=== PATIENT | male | born 1945 | race Caucasian/White ===

== ENCOUNTER → 2017-01-07 08:45 | Outpatient (CLI) | payer MEDICARE, BC, OTHER | END | disposition home or self-care (01) | LOC: D.US 01-06 09:30 → D.LAB 01-06 10:00 → D.US 08:45 | DX: K76.0 Fatty (change of) liver, not elsewhere classified (principal) ==

== ENCOUNTER → 2017-03-10 08:50 | Outpatient (CLI) | payer MEDICARE, BC, OTHER ==
[2017-03-10 10:14] LABS: APPEARANCE HAZY (CLEAR); BILIRUBIN NEGATIVE (NEGATIVE); COLOR YELLOW (YELLOW); GLUCOSE NEGATIVE (NEGATIVE); KETONE NEGATIVE (NEGATIVE); LEUKOCYTE ESTERASE TRACE (NEGATIVE); NITRITE NEGATIVE (NEGATIVE); PROTEIN TRACE mg/dL (NEGATIVE); UROBILINOGEN NORMAL (NORMAL)
[2017-03-10 10:15] LABS: BACTERIA FEW /hpf (NONE SEEN); EPITHELIAL CELLS 0-5 /hpf (0-5); MUCUS >1+ /lpf (NONE SEEN); RED CELLS - URINE RARE /hpf (0-5); WHITE CELLS - URINE 0-5 /hpf (0-5)
[2017-03-10 10:38] LABS: ALBUMIN 3.5 g/dL (3.4-5.0); BILIRUBIN - DIRECT 0.05 mg/dL (0.00-0.30); BILIRUBIN - INDIRECT 0.18 mg/dL (0.00-1.00); BILIRUBIN - TOTAL 0.23 mg/dL (0.2-1.3); PROTEIN - SERUM 7.9 g/dL (6.4-8.2)
== END | disposition home or self-care (01) ==
LOC: D.US 08:50
PROVIDERS: Internal Medicine Gastroenterology
DX: K76.0 Fatty (change of) liver, not elsewhere classified (principal)

== ENCOUNTER → 2018-04-07 08:42 | Outpatient (CLI) | payer MEDICARE, BC, OTHER ==
[2018-04-07 09:51] LABS: ALBUMIN 3.9 g/dL (3.4-5.0); BILIRUBIN - DIRECT 0.11 mg/dL (0.00-0.30); BILIRUBIN - INDIRECT 0.39 mg/dL (0.00-1.00); BILIRUBIN - TOTAL 0.5 mg/dL (0.2-1.3); PROTEIN - SERUM 7.6 g/dL (6.4-8.2)
== END | disposition home or self-care (01) ==
LOC: D.US 04-05 08:00
PROVIDERS: Internal Medicine Gastroenterology
DX: K76.0 Fatty (change of) liver, not elsewhere classified (principal)

== ENCOUNTER → 2018-04-13 07:28 | Outpatient (CLI) | payer MEDICARE, BC, OTHER ==
[2018-04-13 08:15] LABS: CREATININE - SERUM 1.2 mg/dL (0.6-1.3)
== END | disposition home or self-care (01) ==
LOC: D.LAB 07:28 → D.MRI 08:00
PROVIDERS: Internal Medicine Gastroenterology
DX: R93.8 Abnormal findings on diagnostic imaging of other specified body structures (principal); K76.9 Liver disease, unspecified; K86.89 Other specified diseases of pancreas

== ENCOUNTER 2018-06-13 08:00 | Outpatient (CLI) | payer MEDICARE, BC, OTHER ==
[2018-06-13] MEDS ORDERED: TRULICITY1.5 MG/0.5 SC (09:49)
[2018-06-13] MEDS ORDERED: ZOLOFT100 MG PO (09:50)
[2018-06-13] MEDS ORDERED: GLUCOTROL 5 MG T5 MG PO (09:51)
[2018-06-13] MEDS ORDERED: OMEPRAZOLE20 M1 PO (09:51)
[2018-06-13] MEDS ORDERED: HYDROCHLOROTHIA25 MG PO (09:51)
[2018-06-13] MEDS ORDERED: TYLENOL650 MG/20. (09:52)
[2018-06-13] MEDS ORDERED: CARAFATE1 G PO (09:52)
[2018-06-13] MEDS ORDERED: LOVAZA1 G PO (09:53)
[2018-06-13] MEDS ORDERED: CATAPRES0.3 MG PO (09:53)
[2018-06-13] MEDS ORDERED: CENTRUM SILVER1 TA1 PO (09:54)
[2018-06-13] MEDS ORDERED: VITAMIN B-150 MG PO (09:54)
[2018-06-13] MEDS ORDERED: BAYER CHEWABLE81 MG PO (09:54)
[2018-06-13] MEDS ORDERED: AVAPRO300 MG PO (09:55)
[2018-06-13] MEDS ORDERED: VITAMIN C WIT1000 MG (09:55)
[2018-06-13] MEDS ORDERED: NORVASC10 MG PO (09:56)
[2018-06-13] MEDS ORDERED: TESTOSTERON200 MG/ML IM (09:57)
[2018-06-13] MEDS ORDERED: ZOCOR20 MG PO (09:57)
[2018-06-13 10:52] LABS: HEMATOCRIT 55.3 % (42.0-54.0); HEMOGLOBIN 18.6 g/dL (13.5-17.5); MCH 25.1 pg (26.0-34.0); MCHC 33.6 g/dL (31.0-37.0); MCV 74.7 fL (80.0-100.0); PLATELET COUNT 348 10x3/uL (130-400); RDW 18.7 % (11.5-14.5)
[2018-06-13 11:17] LABS: CALC OSMOLALITY 291 mosm/kg (275-300); CALCIUM 9.6 mg/dL (8.5-10.1); CARBON DIOXIDE 30.4 mmol/L (21.0-32.0); CHLORIDE - SERUM 103 mmol/L (98-107); GLUCOSE 260 mg/dL (74-106); POTASSIUM - SERUM 4.6 mmol/L (3.5-5.1); SODIUM 140 mmol/L (136-145); UREA NITROGEN 25 mg/dL (7-18); eGFR NON AFRICAN AMERICAN 78 mL/min (90-120)
== END 2018-06-13 08:01 | disposition home or self-care (01) ==
LOC: D.OPS 08:00 → EDSTATUS 06-15 09:30 → D.PAN 06-15 09:30 → D.OPS 06-15 09:30
PROVIDERS: Anesthesiology
DX: M19.071 Primary osteoarthritis, right ankle and foot (principal); Z01.811 Encounter for preprocedural respiratory examination; Z01.812 Encounter for preprocedural laboratory examination; Z01.810 Encounter for preprocedural cardiovascular examination; Z53.9 Procedure and treatment not carried out, unspecified reason

== ENCOUNTER → 2018-10-14 08:26 | Outpatient (CLI) | payer MEDICARE, BC, OTHER ==
[~2018-10-14 08:26] MED LIST: AVAPRO300 MG PO; BAYER CHEWABLE81 MG PO; CARAFATE1 G PO; CATAPRES0.3 MG PO; CENTRUM SILVER1 TA1 PO; GLUCOTROL 5 MG T5 MG PO; HYDROCHLOROTHIA25 MG PO; LOVAZA1 G PO; NORVASC10 MG PO; OMEPRAZOLE20 M1 PO; TESTOSTERON200 MG/ML IM; TRULICITY1.5 MG/0.5 SC; TYLENOL650 MG/20.; VITAMIN B-150 MG PO; VITAMIN C WIT1000 MG; ZOCOR20 MG PO; ZOLOFT100 MG PO
== END | disposition home or self-care (01) ==
LOC: D.US 08:26
DX: K76.0 Fatty (change of) liver, not elsewhere classified (principal)

== ENCOUNTER → 2018-10-27 12:59 | Outpatient (CLI) | payer MEDICARE, BC, OTHER | END | disposition home or self-care (01) | LOC: D.RT 12:59 | DX: Z87.891 Personal history of nicotine dependence (principal) ==

== ENCOUNTER → 2018-10-28 08:48 | Outpatient (CLI) | payer MEDICARE, BC, OTHER ==
[2018-10-28 10:42] LABS: BILIRUBIN - DIRECT 0.14 mg/dL (0.00-0.30); BILIRUBIN - INDIRECT 0.29 mg/dL (0.00-1.00); BILIRUBIN - TOTAL 0.43 mg/dL (0.2-1.3); PROTEIN - SERUM 7.5 g/dL (6.4-8.2)
== END | disposition home or self-care (01) ==
LOC: D.US 08:48
PROVIDERS: Internal Medicine Gastroenterology
DX: K76.0 Fatty (change of) liver, not elsewhere classified (principal)

== ENCOUNTER → 2019-04-27 09:03 | Outpatient (CLI) | payer MEDICARE, BC, OTHER | END | disposition home or self-care (01) | LOC: D.US 09:03 | DX: K76.0 Fatty (change of) liver, not elsewhere classified (principal) ==

== ENCOUNTER 2019-09-08 10:10 | Outpatient (CLI) | payer MEDICARE, BC, OTHER ==
[~2019-09-08] VITALS: Ht 170.2 cm; Wt 93.2 kg
--- NOTE | ~2019-09-08 | HEMODYNAMI ---
PATIENT:WIL VASQUEZ MEDICAL RECORD: [id number] : 43 LOCATION:[facility] ADMISSION DATE: 09/08/19 Generatedon:09/08/201914:55 Patient name: WIL VASQUEZ Patient #: [id number] SSN: : 1945 Date of study: 09/08/2019 Page: Of Hemodynamic Procedure Report Patient Data Patient Demographics Procedure consent was obtained First Name: WIL Gender: Male Last Name: CHRISTINA : 1945 Middle Initial: MYA Age: 73 year(s) Patient #: [id number] Race: Unknown Additional ID: [id number] Contact details [address]: [address] [place] [address] State: [place] City: [place] Zip code: [address] Past Medical History Allergies Allergen Reaction Date Comments Reported Other allergy 09/08/2019 carlos pcnroberth Admission Admission Data Admission Date: 09/08/2019 Admission Time: 10:10 Procedure Procedure Types Cath Procedure Peripheral Cath Diagnostic Procedure Abd/Extremity Extremities Bilat Lower Extremity Procedure Description Procedure Date Procedure Date: 09/08/2019 Procedure Start Time: 14:16 Procedure Staff Name Function Henrique Antonio MD Performing Physician Sergey Conway RT Monitor REHAN SNYDER RT Scrub Serenity Vega RN Nurse Selin Truong RN Nurse Griffin Acosta CRNA Additional personnel Procedure Data Cath Procedure Fluoroscopy Diagnostic fluoroscopy Total fluoroscopy Time: 3.4 time: 3.4 min min Diagnostic fluoroscopy Total fluoroscopy dose: 608 dose: 608 mGy mGy Contrast Material Contrast Material Type Amount (ml) Isovue 300 50 Procedure Medications Medication Administration Route Dosage Lidocaine 1% added to field 20 Heparin Flush Bag added to field 2 bags (1000units/500ml NS) Hemodynamics Rest Pre Cath Intra NCS Post Cath Medications Time Medication Route Dose Verified Delivered Reason Notes Effe ctiveness by by 13:12:33 Lidocaine 1% added 20ml Henrique Duenas for local to vial Paco Antonio MD anesthetic field MD 13:12:46 Heparin Flush added 2 Henrique Duenas used for Bag to bags Paco Antonio MD procedure (1000units/500ml field MD NS) Procedure Log Time Note 13:12:33 Lidocaine 1% 20ml vial added to field was administered by Henrique Antonio MD; for local anesthetic; Verbal order read back and verified. 13:12:46 Heparin Flush Bag (1000units/500ml NS) 2 bags added to field was administered by Henrique Antonio MD; used for procedure; Verbal order read back and verified. 13:14:47 Use device set IR Diagnostic 13:14:50 ACIST Syringe (12624) opened to sterile field. 13:14:51 ACIST Hand Control (22450) opened to sterile field. 13:14:51 ACIST Manifold (40096) opened to sterile field. 13:14:52 Bag Decanter (2002S) opened to sterile field. 13:14:52 Sterile Angiographic Pack opened to sterile field. 13:14:53 Tegaderm 4 x 4 (1626W) opened to sterile field. 13:16:12 Sergey Conway RT (R) (CV) sent for patient. Start room use. 13:16:14 Time tracking: Regular hours (M-F 7:00 - 5:00) 13:16:18 Patient received from Outpatients to IR Alert and oriented. Tansferred to table in Supine position. 13:16:22 Signed procedure consent form obtained from patient. 13:17:03 Correct patient and procedure confirmed by team. 13:17:05 ECG and BP/O2 sat monitors applied to patient. 13:17:07 Warm blankets applied, and kenn hugger turned on for patient comfort. 13:17:55 H&P Date Dictated: 09/08/2019 H&P Addendum completed by physician on da y of procedure. (MUST COMPLETE FOR ALL OUTPATIENTS). 13:17:56 Pre-procedure instructions explained to patient. 13:17:57 Pre-op teaching completed and patient verbalized understanding. 13:18:07 Patient NPO since Midnight. 13:18:34 Patient allergic to Other allergypepcid, pcn, bydureon 13:26:27 - 13::28 ----see anesthesia note for Pre-sedation anethsthesia assessment.---- 13::53 - 13::05 Right groin area was prepped with chlora-prep and draped in sterile fashion 13::11 Alarms reviewed by Reyna Sung 13::11 Sharps counted by scrub and verified by Kevin 13:27:29 2) 60-89 Mildly reduced kidney function, and other findings (as for stage 1) point to kidney disease. 13:27:37 Fire Safety Assessment: A--An alcohol-based skin anteseptic being used preoperatively., C--Open oxygen or nitrous oxide is being used. 13:27:47 - 13:55:26 Griffin Acosta CRNA present and monitoring patient for TIVA. 14:: Physician arrived 14:: --------ALL STOP TIME OUT------ : Final Timeout: patient, procedure, and site verified with staff and physician. All members of the team are in agreement. 14:: Right groin site verified by team. 14::21 Sedation plan: General Anesthesia Medication:General Anesthesia 14::31 2) 60-89 Mildly reduced kidney function, and other findings (as for stage 1) point to kidney disease. 14:: Maximum allowable contrast dose (3.7 X eGFR X 0.75)191 ml. 14:10:37 Procedure started. 14:10:37 Full Disclosure recording started 14:16:28 Local anesthetic to right femoral artery with Lidocaine 1% by Henrique Antonio MD.INITIAL ACCESS ONLY 14:16:29 CHOICE PT Extra Support J 300cm guide wire ([id number]) opened to steril e field. 14:16:29 SHEATH 5FR Shipman (OUK742) opened to sterile field. 14:16:30 ANGLIN 260 wire (L11233) opened to sterile field. 14:16:30 DOC .035 wire (P01974) opened to sterile field. 14:16:30 MICROPUNCTURE 4FR Cook (Y68777) opened to sterile field. 14:16:31 TUBING Contrast Injection High Pressure (URG298Z) opened to sterile field. 14:16:31 Angiodynamics Omniflush 5Fr 65cm (17528209) opened to sterile field. 14:16:32 GLIDE CATHETER 5FR ANGLED 65cm (CG507) opened to sterile field. 14:16:32 SHEATH 6FR Destination (RSR01) opened to sterile field. 14:16:33 AMPLATZ Super Stiff 75cm wire ([id number]) opened to sterile field. 14:21:50 GLIDE WIRE ANGLE 180cm (BP6302) opened to sterile field. 14:22:01 TORQUE DEVICE PLASTIC .038 ( TD01) opened to sterile field. 14:32:48 EXOSEAL 5Fr (EX500) opened to sterile field. 14:41:06 Procedure ended.(Physican Out) 14:41:24 Fluoroscopy time 03.40 minutes. 14:41:29 Fluoroscopy dose: 608 mGy 14:41:29 Flurop Dose total: 608 14:42:10 Contrast amount:Isovue 300 50ml. 14:42:15 Maximum allowable dose exceeded? No. 14:42:43 Post right femoral artery:stable 14:42:45 Post Procedure Pulses reassessed and unchanged 14:44:19 Post procedure instruction explained to patient.Patient verbalizes understanding. 14:44:19 Procedure and supply charges have been captured, reviewed, submitted an d are correct. 14:55:00 Report given to Outpatients. 14:55:03 Patient transfered to Outpatients with Bed. Device Usage Item Name Manufacture Quantity Catalog Number Hospital Part Current [facility] Lot# / Charge Number Stock Stock Serial# Code ACIST Syringe Acist Medical 1 75906 820836 420021 888675 20 (56767) Systems Inc ACIST Hand Acist Medical 1 35546 485996 011280 860934 5 Control Systems Inc (28468) ACIST Acist Medical 1 92141 936736 208770 628965 5 Manifold Systems Inc (74940) Bag Decanter Microtek 1 2001S 591170 57622 429442 5 (2001S) Medical Inc. Sterile Cardinal 1 [id number] 157009 572617 5 Angiographic Health Pack Tegaderm 4 x 3M 1 1626W 619250 246256 887939 5 4 (1626W) CHOICE PT [facility] 1 [id number] 314259 049061 716667 5 Floppy J Scientific 300cm guide wire ([id number]) CHOICE PT [facility] 1 [id number] 898961 20190530 811637 5 Extra Support Scientific J 300cm guide wire ([id number]) SHEATH 5FR Terumo 1 JLU107 484097 630755 068860 5 Shipman (YBU257) ANGLIN 260 [facility] 1 R11496 752058 20794 216400 5 wire (Z46443) DOC .035 wire [facility] 1 Q01497 265956 290691 5 (M19561) MICROPUNCTURE [facility] 1 Q18275 715576 878076 838435 5 4FR Cook (Z53785) TUBING [facility] 1 LTV109M 611550 958259 255399 5 [id number] Contrast Injection High Pressure (EHD166D) Angiodynamics Angiodynamics 1 [id number] 456311 125611 960296 5 Omniflush 5Fr 65cm (70783129) GLIDE Terumo 1 CG507 966984 782984 5 CATHETER 5FR ANGLED 65cm (CG507) SHEATH 6FR Terumo 1 RSR01 085377 17946 968632 5 Destination (RSR01) AMPLATZ Super [facility] 1 [id number] 315138 352894 707875 5 [id number] Stiff 75cm Scientific wire ([id number]) GLIDE WIRE Terumo 1 UE3058 179568 332142 873707 5 ANGLE 180cm (PG0996) TORQUE DEVICE [facility] 1 TD01 502651 931994 207790 5 PLASTIC .038 Scientific ( TD01) EXOSEAL 5Fr Cardinal 1 EX500 348620 904339 258102 10 [id number] (EX500) Health Signature Audit [place] Stage Time Signature Unsigned Intra-Procedure 09/08/2019 Serge[facility] 2:55:23 [facility] [address] [place] [id number]
[2019-09-08 10:40] LABS: CALCIUM 8.9 mg/dL (8.5-10.1); CARBON DIOXIDE 29.6 mmol/L (21.0-32.0); CREATININE - SERUM 1.1 mg/dL (0.6-1.3); POTASSIUM - SERUM 4.6 mmol/L (3.5-5.1)
[2019-09-08 11:22] LABS: HEMOGLOBIN 11.7 g/dL (13.5-17.5); MCH 28.5 pg (26.0-34.0); MCHC 33.4 g/dL (31.0-37.0); MCV 85.2 fL (80.0-100.0); MEAN PLATELET VOLUME 11.6 fL (7.4-10.4); RBC 4.11 10x6/uL (4.20-6.10); RDW 17.3 % (11.5-14.5); WBC 17.5 10x3/uL (4.8-10.8)
[2019-09-08 11:30] LABS: PLATELET COUNT 184 10x3/uL (130-400)
[2019-09-08 11:32] LABS: APTT 28.8 SECONDS (22.8-39.4); INR 1.2 (0.85-1.17); PROTIME 14.6 SECONDS (11.6-15.0)
[2019-09-08 11:33] VITALS: BP 147/73; Ht 170.2 cm; Wt 93.2 kg
[2019-09-08 12:07] LABS: ANISOCYTOSIS 1+; EOSINOPHILS 3 % (0-7); LYMPHOCYTES 14 % (15-50); MONOCYTES 4 % (2-11); NEUTROPHILS 73 % (40-80); PLATELET ESTIMATE NORMAL
[2019-09-08 12:08] LABS: POIKILOCYTOSIS 1+
--- NOTE | 2019-09-08 17:57 | NUR ---
RIGHT GROIN DRESSING C/D/I, AREA SOFT, NONTENDER, NONEDEMATOUS, PATIENT LYING IN BED, RIGHT PEDAL PULSES POSITIVE TO DOPPLER. PATIENT AMBULATES TO BATHROOM AND VOIDS LARGE AMOUNT IN TOILET WITHOUT DIFFICULTY. RIGHT HAND PIV DC'D WITH TIP INTACT. PATIENT DRESSING IN PERSONAL CLOTHING
--- NOTE | 2019-09-08 18:05 | NUR ---
DISCHARGED HOME VIA WHEELCHAIR TO PRIVATE VEHICLE WITH SPOUSE
== END 2019-09-08 18:05 | disposition home or self-care (01) ==
LOC: D.SP 10:10 → D.RAD 13:00 → D.SP 13:00
PROVIDERS: ATTEND General Practice
DX: I70.212 Atherosclerosis of native arteries of extremities with intermittent claudication, left leg (principal); I70.239 Atherosclerosis of native arteries of right leg with ulceration of unspecified site

== ENCOUNTER → 2019-11-07 08:15 | Outpatient (CLI) | payer MEDICARE, BC, OTHER ==
[2019-09-08 11:33] VITALS: BMI 32.2
--- NOTE | 2019-11-09 10:40 | EC ---
PATIENT:WIL VASQUEZ DATE OF SERVICE: 11/07/19 SEX: M MEDICAL RECORD: [id number] DATE OF : 43 LOCATION:D. AGE OF PATIENT: 73 ADMISSION DATE: 11/07/19 REFERRING PHYSICIAN: INTERPRETING PHYSICIAN: GALINA RODRIGUES MD ECHOCARDIOGRAM REPORT ECHO CHARGES 4 ECHO COMPLETE Date: 11/07/19 CLINICAL DIAGNOSIS: BILATERAL CAROTID ARTERY STENOSIS/ASSESS EF/VAVLES ECHOCARDIOGRAPHIC MEASUREMENTS (adult normal given) AC root (d.<3.7cm) 3.6 cm LV Septum d (<1.2 cm> 1.3 cm Valve Excursion 1.6 cm LV Septum (systole) 1.8 cm Left Atria (s.<4.0cm> 4.0 cm LVPW d(<1.2cm) 1.7 cm RV (d.<2.3cm) 5.0 cm LVPW (sytole) 2.0 cm LV diastole(<5.6CM) 5.9 cm MV E-F(>70mm/sec) cm LV systole 2.0 cm LVOT Diameter 1.5 cm MV exc.(>10mm) 1.5 cm Est.ejection fraction (50-75%) % DOPPLER: LVIT cm/sec A 109 cm/sec E 90.0 cm/sec LA cm/sec RVSP 31 mmHg LVOT 91 cm/sec AOP1/2T m/s Asc. Ao 228 cm/sec RVOT 78 cm/sec RA cm/sec PA 109 cm/sec AV Gradient Peak 20.72mmHg AV Mean 120.3mmHg AV Area 1.4 cm MV Gradient Peak 5.05 mmHg MV Mean 1.73 mmHg MV Area cm COMMENTS: Pricer: 2 [facility] School Administrator: 1 Dr. Rodrigues TAPE# PACS Pericardial Effusion N DATE OF SERVICE: ECHOCARDIOGRAM FINDINGS: 1. Left ventricular chamber size is mildly dilated. Left ventricular systolic function is preserved at 55% to 60%. 2. Left atrium is upper limits of normal at 4.0 cm. Right atrium and right ventricle chamber sizes are within normal limits. 3. Valvular structures: Aortic valve demonstrates mild calcific aortic ECHOCARDIOGRAM REPORT [id number] WIL VASQUEZ stenosis, valve area calculates to 1.4 cm-squared and has a gradient of 20 mm across the valve. The remaining valvular structures have normal structure and motion. 4. Doppler interrogation elsewise reveals mild mitral regurgitation, mild tricuspid regurgitation, no other valvular insufficiency or stenosis. Pulmonary systolic pressure is estimated at 31 mmHg. 5. No evidence of pericardial effusion or left ventricular thrombus. TRANSINT:[id number] Voice Confirmation ID: [id number] DOCUMENT ID: [id number] GALINA RODRIGUES MD at 1040 CC: [id number] DICTATION DATE: 11/07/19 1150 SALESPERSON JEWELRY: 11/07/19 1252 DEP CLI 11/07/19 [facility] [address] [place] [address]
== END | disposition home or self-care (01) ==
LOC: D.US 08:15 → D.ECHO 11-09 09:30
PROVIDERS: ATTEND Internal Medicine Cardiovascular Disease
DX: I65.23 Occlusion and stenosis of bilateral carotid arteries (principal)

== ENCOUNTER → 2019-11-28 09:58 | Outpatient (CLI) | payer MEDICARE, BC, OTHER ==
[2019-09-08 11:33] VITALS: BMI 32.2
[~2019-11-28 09:58] MED LIST changes: +ACIDOPHILUS-PE1 EACH PO; +GLIPIZIDE10 MG PO; -GLUCOTROL 5 MG T5 MG PO; +JAKAFI5 MG PO; +PLAVIX75 MG PO; +PROTONIX20 MG PO; +STOOL SOFTENER100 M1 PO; +TYLENOL ARTHRI650 MG PO; +VITAMIN C500 M1 PO; +ZYRTEC10 MG PO
[2019-11-28 12:26] LABS: HEMATOCRIT 35.2 % (42.0-54.0); HEMOGLOBIN 11.8 g/dL (13.5-17.5); MCH 28.4 pg (26.0-34.0); MCHC 33.5 g/dL (31.0-37.0); MCV 84.6 fL (80.0-100.0); MEAN PLATELET VOLUME 10.5 fL (7.4-10.4); RBC 4.16 10x6/uL (4.20-6.10); WBC 18.6 10x3/uL (4.8-10.8)
[2019-11-28 12:40] LABS: INR 1.19 (0.85-1.17); PROTIME 14.5 SECONDS (11.6-15.0)
[2019-11-28 12:56] LABS: ALBUMIN 4.1 g/dL (3.4-5.0); ALKALINE PHOSPHATASE 101 U/L (46-116); ALT (SGPT) 70 U/L (10-68); BILIRUBIN - TOTAL 0.35 mg/dL (0.2-1.3); CALC OSMOLALITY 286 mosm/kg (275-300); CALCIUM 8.8 mg/dL (8.5-10.1); CARBON DIOXIDE 28.2 mmol/L (21.0-32.0); CHLORIDE - SERUM 106 mmol/L (98-107); GLUCOSE 156 mg/dL (74-106); POTASSIUM - SERUM 4.2 mmol/L (3.5-5.1); SODIUM 142 mmol/L (136-145); UREA NITROGEN 14 mg/dL (7-18); eGFR NON AFRICAN AMERICAN 78 mL/min (90-120)
[2019-11-28 13:10] LABS: APPEARANCE CLEAR (CLEAR); BILIRUBIN NEGATIVE (NEGATIVE); COLOR DK YELLOW (YELLOW); GLUCOSE NEGATIVE (NEGATIVE); KETONE NEGATIVE (NEGATIVE); NITRITE NEGATIVE (NEGATIVE); PROTEIN 1+ mg/dL (NEGATIVE); UROBILINOGEN NORMAL (NORMAL)
[2019-11-28 13:12] LABS: BACTERIA FEW /hpf (NEGATIVE); EPITHELIAL CELLS 0-5 /hpf (0-5); GRANULAR CAST RARE /lpf (NONE SEEN); HYALINE CAST OCC /lpf (NONE SEEN); MUCUS <1+ /lpf (NONE SEEN); RED CELLS - URINE NONE SEEN /hpf (0-5); WHITE CELLS - URINE OCC /hpf (NEGATIVE)
== END | disposition home or self-care (01) ==
LOC: D.PAN 09:58
PROVIDERS: Thoracic Surgery (Cardiothoracic Vascular Surgery); ATTEND Internal Medicine Cardiovascular Disease
DX: I70.212 Atherosclerosis of native arteries of extremities with intermittent claudication, left leg (principal); Z01.810 Encounter for preprocedural cardiovascular examination; Z01.811 Encounter for preprocedural respiratory examination; Z01.812 Encounter for preprocedural laboratory examination

== ENCOUNTER 2019-11-28 10:10 | Inpatient (IN) | payer MEDICARE, BC, OTHER ==
[~2019-11-28] VITALS: Ht 170.2 cm; Wt 95.7 kg
[~2019-11-28 10:10] MED LIST changes: -ACIDOPHILUS-PE1 EACH PO; -JAKAFI5 MG PO; -PLAVIX75 MG PO; -PROTONIX20 MG PO; -STOOL SOFTENER100 M1 PO; -TYLENOL ARTHRI650 MG PO; -VITAMIN C500 M1 PO; -ZYRTEC10 MG PO
[2019-11-28] MEDS ORDERED: JAKAFI5 MG PO (12:34)
[2019-11-28] MEDS ORDERED: PROTONIX20 MG PO (12:35)
[2019-11-28] MEDS ORDERED: TYLENOL ARTHRI650 MG PO (12:41)
[2019-11-28] MEDS ORDERED: ACIDOPHILUS-PE1 EACH PO (12:43)
[2019-11-28] MEDS ORDERED: VITAMIN C500 M1 PO (12:46)
[2019-11-28] MEDS ORDERED: PLAVIX75 MG PO (12:47)
[2019-11-28] MEDS ORDERED: NORVASC10 MG PO (12:48)
[2019-11-28] MEDS ORDERED: ZYRTEC10 MG PO (12:49)
[2019-11-28] MEDS ORDERED: STOOL SOFTENER100 M1 PO (12:51)
[2019-12-01] VITALS (54 sets, daily range): BP systolic 105–165; BP diastolic 49–76; BMI 32.0; BMI 34.4
--- NOTE | 2019-12-01 10:43 | NUR ---
REC'D TO ROOM CV 06 VIA BED. CONNECTED TO BEDSIDE MONITOR AND VS OBTAINED. SEE FLOWSHEET FOR ASSESSMENT.
[2019-12-01 12:23] LABS: HEMATOCRIT 29.1 % (42.0-54.0); HEMOGLOBIN 9.8 g/dL (13.5-17.5)
--- NOTE | 2019-12-01 19:00 | NUR ---
PT ASSESSMENT COMPELTED AT THIS TIME, NO CHANGES NOTED FROM NURSE REPORT, VSS, A-LINE REMOVED FROM RIGHT WRIST AND MANUAL PRESSURE WAS HELD FOR 5 MIN, BLEEDING CONTROLED, CVP MONITORING WAS ALSO D/C DUE TO DUAL PRESSURE MONITORING LINES INPLACE, WILL MONITOR FOR CHANGES
--- NOTE | 2019-12-01 23:00 | NUR ---
PT REASSESSMENT COMPLETED AT THIS TIME, NO CHANGES NOTED FROM PREVIOUS, VSS, WILL MONITOR FOR CHANGES
[2019-12-02] VITALS (24 sets, daily range): BP systolic 111–167; BP diastolic 45–80
--- NOTE | 2019-12-02 01:00 | NUR ---
PT RESTING WITH EYES CLOSED RESP EVEN NONLABORED, VSS, NO DSITRESS NOTED, WILL MONITOR FOR CHANGES
--- NOTE | 2019-12-02 03:00 | NUR ---
PT REASSESSMENT COMPLETED AT THIS TIME, NO CHANGES NOTED, VSS, WILL MONITOR FOR CHANGES
--- NOTE | 2019-12-02 05:00 | NUR ---
PT I&O AND DAILY WEIGHT DOCUMENTATION COMPLETED, VSS, WILL MONITOR FOR CHANGES
[2019-12-02 06:07] LABS: HEMATOCRIT 27.6 % (42.0-54.0); MCH 27.9 pg (26.0-34.0); MCHC 32.6 g/dL (31.0-37.0); MCV 85.4 fL (80.0-100.0); MEAN PLATELET VOLUME 10.1 fL (7.4-10.4); RBC 3.23 10x6/uL (4.20-6.10); RDW 16.7 % (11.5-14.5); WBC 16.3 10x3/uL (4.8-10.8)
--- NOTE | 2019-12-02 06:10 | NUR ---
DANIELLE REMOVED AFTER BULB INTACT, 10 ML ASPIRATED, NICK WELL, PT ASSISTED UP TO CHAIR WITH STAND BY ASSIST
[2019-12-02 06:33] LABS: ALBUMIN 3.3 g/dL (3.4-5.0); ANION GAP 13.6 mmol/L (8-16); BILIRUBIN - TOTAL 0.45 mg/dL (0.2-1.3); CALCIUM 7.1 mg/dL (8.5-10.1); CARBON DIOXIDE 26.5 mmol/L (21.0-32.0); CREATININE - SERUM 1.2 mg/dL (0.6-1.3); POTASSIUM - SERUM 4.1 mmol/L (3.5-5.1); PROTEIN - SERUM 5.7 g/dL (6.4-8.2)
--- NOTE | 2019-12-02 12:24 | OP ---
PATIENT NAME: WIL VASQUEZ MEDICAL RECORD: [id number] :43 [facility] ADMISSION DATE:12/01/19 SURGEON: CALVIN JENKINS MD DATE OF OPERATION: 12/01/2019 SURGEON: Calvin Jenkins MD ANESTHESIA: General, Dr. Reed. OPERATION PERFORMED: Left common femoral, superficial femoral, and profunda femoral endarterectomy with patch angioplasty. PREOPERATIVE DIAGNOSES: Severe claudication of left lower extremity with severe stenosis of the common femoral artery. POSTOPERATIVE DIAGNOSES: Severe claudication of left lower extremity with severe stenosis of the common femoral artery. INDICATIONS FOR OPERATION: Severe claudication, Ciales stage III. ESTIMATED BLOOD LOSS: Less than 150 mL. The patch is CorMatrix, 1 inch x 10 cm. DESCRIPTION OF PROCEDURE: After informed consent, adequate preoperative medication evaluation, the patient was brought to the operating room, placed on the table in the supine position. After induction of general endotracheal anesthesia and application of appropriate monitoring devices, the left groin, abdomen, left leg were prepped and draped in sterile field using Betadine scrub, alcohol, and Betadine solution. A Betadine-impregnated drape was also used. A curvilinear incision was made over the left inguinal ligament and thigh, and dissection was carried down the fascia. Hemostasis was maintained with electrocautery. The common femoral artery was dissected distally onto the superficial femoral artery. A soft place was found on the superficial femoral artery to pass a vessel loop. Attention was then turned toward the profunda femoral artery. Utilizing sharp dissection, the profunda femoral artery and its branches to the first level were dissected free. Utilizing sharp dissection, the crossing vein was divided utilizing 4-0 silk suture ligatures. The individual limbs of the profunda were encircled with vessel loops. Attention was then turned cephalad and dissection was carried to the inguinal ligament. The artery was still extremely hard. Utilizing sharp dissection, the dissection was carried out to the external iliac artery and a soft place found that would be suitable for a clamp. The branches were encircled with vessel loops. The patient was given a calculated dose of heparin. Derra clamp was placed proximally on the external iliac artery. The vessel loops were then tightened on the profunda femoral artery and a soft clamp placed on the superficial femoral artery. The ACT was over 250 and was monitored throughout the case. The artery was opened. An arteriotomy was made onto the superficial femoral artery and proximally to the proximal end of the common femoral artery. The superficial femoral artery and common femoral artery underwent endarterectomy. Separately, the profunda femoral artery underwent endarterectomy into each individual branch with removal of a large amount of calcified plaque. The artery then underwent extensive debridement and irrigation. Utilizing a CorMatrix vascular patch, a running 6-0 Prolene suture, the arteriotomy was closed with patch angioplasty technique. All maneuvers to remove trapped air OPERATIVE REPORT [id number] WIL VASQUEZ were performed. The clamps were removed sequentially. The hemostasis was achieved. The patient was given a calculated dose of protamine to reverse the heparin. A 10 Saad-Taylor drain was left in the depths of wound and brought through the thigh. The wound was again irrigated. Instrument count and sponge counts were correct times 2. The wound was closed in layers utilizing 2-0 Vicryl on deep subcutaneous tissue, 3-0 Vicryl on the superficial subcutaneous tissue and skin approximated with 3-0 subcuticular Monocryl. Sterile dressings were applied. The patient tolerated the procedure well and was transferred to CV ICU in satisfactory condition. TRANSINT:[id number] Voice Confirmation ID: [id number] DOCUMENT ID: [id number] CALVIN JENKINS MD at 1224 CC: [id number] DICTATION DATE: 12/01/19 1138 INSPECTOR EYEGLASS FRAMES: 12/01/19 1347 ADM IN [id number] [place] [address]
--- NOTE | 2019-12-02 19:00 | NUR ---
PT ASSESSMENT COMPLETED AT THIS TIME, NO CHANGES NOTED FROM NURSE REPORT, VSS, PT AAOX4, NO DISTRESS NOTED, WILL MONITOR FOR CHANGES
--- NOTE | 2019-12-02 20:56 | NUR ---
PT RESTING IN BED WATCHING TV, PT DENIES COMPLAINTS OR DITRESS AT THIS TIME, VSS, WILL MONITOR FOR CHANGES
--- NOTE | 2019-12-02 23:00 | NUR ---
PT REASSESSMENT COMPLETED AT THIS TIME, VSS, NO CHANGES NOTED, WILL MONITOR FOR CHANGES
[2019-12-03] VITALS (22 sets, daily range): BP systolic 102–150; BP diastolic 49–75
--- NOTE | 2019-12-03 01:00 | NUR ---
PT RESTING WITH EYES CLOSED RESP EVEN NON LABORED, NO DISTRES NOTED, VSS, WILL MONITOR FOR CHANGES
--- NOTE | 2019-12-03 02:40 | NUR ---
PT ASSISTED UP TO THE BATHROOM AT THIS TIME, NO DISTRESS NOTED, REASSESSMENT DONE, PT DENIES COMPLAINTS, VSS
--- NOTE | 2019-12-03 05:00 | NUR ---
I&O DOCUMENTATION COMLETE, VSS, NO DISTRESS OR COMPLAINTS NOTED
[2019-12-03 06:20] LABS: HEMOGLOBIN 9.1 g/dL (13.5-17.5); MCH 28.3 pg (26.0-34.0); MCHC 32.5 g/dL (31.0-37.0); MCV 87.2 fL (80.0-100.0); MEAN PLATELET VOLUME 10.7 fL (7.4-10.4); RBC 3.21 10x6/uL (4.20-6.10); RDW 17.2 % (11.5-14.5); WBC 12.6 10x3/uL (4.8-10.8)
[2019-12-03 06:35] LABS: ALBUMIN 3.3 g/dL (3.4-5.0); ANION GAP 10.8 mmol/L (8-16); BILIRUBIN - TOTAL 0.5 mg/dL (0.2-1.3); CALCIUM 7.5 mg/dL (8.5-10.1); CARBON DIOXIDE 28.1 mmol/L (21.0-32.0); CREATININE - SERUM 1.1 mg/dL (0.6-1.3); POTASSIUM - SERUM 3.9 mmol/L (3.5-5.1); PROTEIN - SERUM 6.3 g/dL (6.4-8.2)
--- NOTE | 2019-12-03 07:38 | NUR ---
PT OOB IN CHAIR. BREAKFAST TRAY SERVED AND PT EATING WITH OUT PROBLEMS.
--- NOTE | 2019-12-03 14:17 | NUR ---
DR JENKINS HERE ON ROUNDS AROUND NOON AND SPOKE TO MULT FAMILY MEMBERS AT .
--- NOTE | 2019-12-03 18:30 | NUR ---
PT AMB WITH PT ENTIRE LENGTH OF CVICU AND AMB INDEPENDENTLY.
--- NOTE | 2019-12-03 19:00 | NUR ---
PT ASSESSMENT COMPLETED AT THIS TIME, PT AAOX4 SITTING IN BEDSIDE CHAIR, PT DENIES COMPLAINTS OR DISTRESS AT THIS TIME, VSS, WILL MONITOR FOR CHANGES
--- NOTE | 2019-12-03 20:52 | NUR ---
PT GIVEN PO MEDS AT THIS TIME, NO PROBLEMS NOTED, VSS, WILL CONT TO MONITOR FOR CHANGES
--- NOTE | 2019-12-03 23:00 | NUR ---
PT REASSESSMENT COMPLETED AT THIS TIME, NO CHANGES NOTED FROM PREVIOUS, VSS, WILL MONITOR FOR CHANGES
[2019-12-04] VITALS (22 sets, daily range): BP systolic 113–154; BP diastolic 51–77
--- NOTE | 2019-12-04 01:00 | NUR ---
PT RESTING WITH EYES CLOSED, RESP EVEN AND NON LABORED, NO DISTRESS NOTED, VSS, WILL CONT TO MON FOR CHANGES
--- NOTE | 2019-12-04 05:45 | NUR ---
PT ASSISTED UP TO BATHROOM, DRESSING J/P DRAIN WAS NOTED TO WET, DRESSING CHANGED, PT NICK WELL
[2019-12-04 06:18] LABS: HEMATOCRIT 29.2 % (42.0-54.0); HEMOGLOBIN 9.7 g/dL (13.5-17.5); MCH 28.4 pg (26.0-34.0); MCHC 33.2 g/dL (31.0-37.0); MCV 85.6 fL (80.0-100.0); MEAN PLATELET VOLUME 10.5 fL (7.4-10.4); RBC 3.41 10x6/uL (4.20-6.10); RDW 16.9 % (11.5-14.5); WBC 14.8 10x3/uL (4.8-10.8)
[2019-12-04 06:30] LABS: ALBUMIN 3.4 g/dL (3.4-5.0); ANION GAP 12.7 mmol/L (8-16); BILIRUBIN - TOTAL 0.58 mg/dL (0.2-1.3); CREATININE - SERUM 1.1 mg/dL (0.6-1.3); POTASSIUM - SERUM 3.7 mmol/L (3.5-5.1); PROTEIN - SERUM 6.7 g/dL (6.4-8.2)
--- NOTE | 2019-12-04 11:25 | NUR ---
DR. JENKINS AT BED SIDE. DISCUSSED PT STATUS WITH PT AND . WILL CONTINUE TO MONITOR.
--- NOTE | 2019-12-04 19:00 | NUR ---
PT ASSESSMENT COMPLETED AT THIS TIME, NO CHANGES NOTED FROM NURSE REPORT, VSS, PT RESTING IN BED WATCHING TV, NO DISTRESS OR COMPLAINTS, WILL MONITOR FOR CHANGES
--- NOTE | 2019-12-04 21:00 | NUR ---
PT REQUESTED TO HAVE THE DRESSING CHANGED TO LLE, DRESSING WAS REMOVED AND PATIENT HAS SMALL ULCERATION 1 CM IN DIAMETER, WOUND CLEANED AND REDRESSED
--- NOTE | 2019-12-04 23:00 | NUR ---
PT REASSESSMENT COMPLETED AT THIS TIME. NO CHANGES NOTED, VSS
[2019-12-05] VITALS (15 sets, daily range): BP systolic 111–151; BP diastolic 48–108; Ht 170.2 cm; Wt 95.7 kg
--- NOTE | 2019-12-05 01:00 | NUR ---
PT RESTING WITH EYES CLOSED, RESP EVEN AND NON LABORED, VSS, WILL MONITOR FOR CHANGES
--- NOTE | 2019-12-05 03:00 | NUR ---
PT REASSESSMENT COMPLETED AT THIS TIME, NO CHANGES NOTED, VSS
--- NOTE | 2019-12-05 05:20 | NUR ---
PT UP TO THE BATHROOM, NO DISTRESS NOTED, PT DENIES COMPLAINTS AT THIS TIME
[2019-12-05 06:28] LABS: ALBUMIN 3.5 g/dL (3.4-5.0); ANION GAP 12.4 mmol/L (8-16); BILIRUBIN - TOTAL 0.63 mg/dL (0.2-1.3); CALCIUM 8.5 mg/dL (8.5-10.1); CARBON DIOXIDE 27.1 mmol/L (21.0-32.0); CREATININE - SERUM 1.2 mg/dL (0.6-1.3); POTASSIUM - SERUM 3.5 mmol/L (3.5-5.1); PROTEIN - SERUM 6.6 g/dL (6.4-8.2)
[2019-12-05 06:40] LABS: HEMATOCRIT 28.1 % (42.0-54.0); HEMOGLOBIN 9.3 g/dL (13.5-17.5); MCHC 33.1 g/dL (31.0-37.0); MCV 84.6 fL (80.0-100.0); MEAN PLATELET VOLUME 11.9 fL (7.4-10.4); RBC 3.32 10x6/uL (4.20-6.10); RDW 16.5 % (11.5-14.5); WBC 13.6 10x3/uL (4.8-10.8)
--- NOTE | 2019-12-05 07:00 | NUR ---
REPORT RECEVIED FROM THE OFF GOING RN. SEE ASSESSMENT IN THE PTS FLOW SHEET. PT SITTING OOB IN HIS BEDSIDE CHAIR. PT DENIES PAIN. VSS. SINUS NATIVIDAD NOTED 51 BPM. LEFT GRONI DRESSING NOTED WITH SOME SEROUS DRAINGE WITH DILLAN DRAIN COMPRESSED WITH SEROUS DRAINAGE. BILATERAL DP AND PT PULSES DOPPERABLE. CALL LIGHT IN REACH. WILL CONT POC.
--- NOTE | 2019-12-05 08:32 | NUR ---
BREAKFAST TRAY PROVIDED FOR THE PT. CALL LIGHT IN REACH. WILL CONT POC.
--- NOTE | 2019-12-05 18:56 | MORECARE ---
CASE MANAGEMENT DISCHARGE SUMMARY PATIENT: WIL VASQUEZ UNIT: [id number] ADM DATE: 12/01/19 AGE: 73 : 44 SEX: M ROOM/BED: [facility] AUTHOR: AGA MACEDO PHYSICIAN: REFERRING PHYSICIAN: MALLIKA JENKINS MD DATE OF SERVICE: 12/05/19 Discharge Plan Patient Name: WIL VASQUEZ Facility: [facility]:[place] : 1945 Planned Disposition: Anticipated Discharge Date: Discharge Date: Expected LOS: Initial Reviewer: [email or web address] Initial Review Date: 12/04/2019 Generated: 12/05/19 7:56 pm Patient Name: WIL VASQUEZ Page [phone] at 1856 All edits/amendments must be made on the electronic document DICTATION DATE: 12/05/191855 CROSSING TENDER: TIMOTEO 12/05/191855 RPT#: [id number] DC DATE: STATUS: ADM IN [facility] [address] [place] [address] END OF REPORT
--- NOTE | 2019-12-05 19:04 | MORECARE ---
CASE MANAGEMENT DISCHARGE SUMMARY PATIENT: WIL VASQUEZ UNIT: [id number] ADM DATE: 12/01/19 AGE: 73 : 44 SEX: M ROOM/BED: [facility] AUTHOR: REMINGTON,DOC PHYSICIAN: REFERRING PHYSICIAN: MALLIKA JENKINS MD DATE OF SERVICE: 12/05/19 Discharge Plan Patient Name: WIL VASQUEZ Facility: [facility]:[place] : 1945 Planned Disposition: Anticipated Discharge Date: Discharge Date: Expected LOS: Initial Reviewer: [email or web address] Initial Review Date: 12/04/2019 Generated: 12/05/19 8:03 pm Comments DCP- Discharge Planning Updated by [email or web address]: Brenna Garcia on 12/05/19 5:[address] LATE ENTRY 12/04/19 Patient Name: WIL VASQUEZ Admission Status: Elective Accout number: [id number] Admission Date: 12-01-2019 : 1945 Admission Diagnosis: Attending: MALLIKA JENKINS Current LOS: 3 Anticipated DC Date: Planned Disposition: Primary Insurance: MEDICARE A & B Discharge Planning Comments: CM met with patient at bedside after explaining CM role and obtaining verbal consent. Patient lives at home with his where he is independent with his care and plans to return there upon discharge. Patient feels this would be a safe discharge. CM discussed availability / needs of home health and medical equipment. Patient denies any discharge needs at this time. Patient states he will have his family drive him home upon discharge. CM will continue to follow and assist as needed with discharge planning / needs. Corporate Communications Intern: Brnena Garcia DCPIA - Discharge Planning Initial Assessment Updated by [email or web address]: Brenna Garcia on 12/05/19 6:56 pm * Is the patient Alert and Oriented? Yes * How many steps to enter\exit or inside your home? * PCP WILLY * Pharmacy [facility] * Preadmission Environment Home with Family * ADLs Independent * Equipment None * List name and contact numbers for known caregivers / representatives who currently or will assist patient after discharge: JOSUE VASQUEZ - [facility] - [phone] * Verbal permission to speak to the caregivers and representatives has been obtained from the patient. Yes * Community resources currently utilized None * Additional services required to return to the preadmission environment? No * Can the patient safely return to the preadmission environment? Yes * Has this patient been hospitalized within the prior 30 days at any hospital? No Last DP export: 12/05/19 5:56 pm Patient Name: WIL VASQUEZ Page [id number] at 1904 All edits/amendments must be made on the electronic document DICTATION DATE: 12/05/191902 ADJUTANT GENERAL: TIMOTEO 12/05/191902 RPT#: [id number] DC DATE: STATUS: ADM IN [facility] [address] [place] [address] END OF REPORT
[2019-12-06 00:30] VITALS: BP 138/56
[2019-12-06 03:45] VITALS: BP 143/78
[2019-12-06 07:27] VITALS: BP 143/71
--- NOTE | 2019-12-06 07:40 | NUR ---
REPORT RECEIVED. PT SITTING UP IN CHAIR WATCHING TELEVISION. FRESH CUP COFFEE PROVIDED ALONG WITH BREAKFAST TRAY. PT ANTICIPATES DISCHARGE TODAY. DENIES PAIN OR NEEDS AT THIS TIME. CALL LIGHT IN REACH.
[2019-12-06 08:00] VITALS: BP 153/73
[2019-12-06 09:01] VITALS: BP 149/70
--- NOTE | 2019-12-06 10:48 | NUR ---
L-SUBCLAVIAN CVL DC'D WITH CATHETER TIP INTACT. 4x4 AND TEGEDERM DRESSING APPLIED TO AREA. PT INSTRUCTED TO LAY IN BED FOR 30MIN.
--- NOTE | 2019-12-06 11:35 | NUR ---
DISCHARGE INSTRUCTIONS PROVIDED TO PATIENT AND . UNDERSTAND PLAN FOR FOLLOW UP. HAS BEEN GIVEN APPOINTMENT CARD BY DR JENKINS STAFF. WAS ALSO GIVEN WRITTEN PRESCRIPTION FOR [facility]
--- NOTE | 2019-12-06 20:13 | MORECARE ---
CASE MANAGEMENT DISCHARGE SUMMARY PATIENT: WIL VASQUEZ UNIT: [id number] ADM DATE: 12/01/19 AGE: 73 : 43 SEX: M ROOM/BED: [facility] AUTHOR: REMINGTON,DOC PHYSICIAN: REFERRING PHYSICIAN: MALLIKA JENKINS MD DATE OF SERVICE: 12/06/19 Discharge Plan Patient Name: WIL VASQUEZ Facility: [facility]:[place] : 1945 Planned Disposition: Anticipated Discharge Date: Discharge Date: 12/06/2019 Expected LOS: Initial Reviewer: [email or web address] Initial Review Date: 12/04/2019 Generated: 12/06/19 9:13 pm Comments DCP- Discharge Planning Updated by [email or web address]: Brenna Garcia on 12/05/19 5:[address] LATE ENTRY 12/04/19 Patient Name: WIL VASQUEZ Admission Status: Elective Accout number: [id number] Admission Date: 12-01-2019 : 1945 Admission Diagnosis: Attending: MALLIKA JENKINS Current LOS: 3 Anticipated DC Date: Planned Disposition: Primary Insurance: MEDICARE A & B Discharge Planning Comments: CM met with patient at bedside after explaining CM role and obtaining verbal consent. Patient lives at home with his where he is independent with his care and plans to return there upon discharge. Patient feels this would be a safe discharge. CM discussed availability / needs of home health and medical equipment. Patient denies any discharge needs at this time. Patient states he will have his family drive him home upon discharge. CM will continue to follow and assist as needed with discharge planning / needs. Electric Furnace Operator: Brenna Garcia DCPIA - Discharge Planning Initial Assessment Updated by [email or web address]: Brenna Garcia on 12/05/19 6:56 pm * Is the patient Alert and Oriented? Yes * How many steps to enter\exit or inside your home? * PCP [facility] * [facility]acy [facility] * Preadmission Environment Home with Family * ADLs Independent * Equipment None * List name and contact numbers for known caregivers / representatives who currently or will assist patient after discharge: JOSUE VASQUEZ - [facility] - [phone] * Verbal permission to speak to the caregivers and representatives has been obtained from the patient. Yes * Community resources currently utilized None * Additional services required to return to the preadmission environment? No * Can the patient safely return to the preadmission environment? Yes * Has this patient been hospitalized within the prior 30 days at any hospital? 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
== END 2019-12-06 11:37 | disposition home or self-care (01) | DRG 254 ==
LOC: D.CVICU 12-01 05:13 → D.SDCHOLD 12-01 05:13 → D.CVICU 12-01 11:45
PROVIDERS: ADMIT Internal Medicine Cardiovascular Disease; ATTEND Internal Medicine Cardiovascular Disease
PROC: 04UL0JZ Supplement Left Femoral Artery with Synthetic Substitute, Open Approach (ICD-10-PCS; 2019-12-01)
PROC: 04CL0ZZ Extirpation of Matter from Left Femoral Artery, Open Approach (ICD-10-PCS; principal; 2019-12-01 07:30)
DX: I70.212 Atherosclerosis of native arteries of extremities with intermittent claudication, left leg (principal); E11.9 Type 2 diabetes mellitus without complications; I10 Essential (primary) hypertension; E78.5 Hyperlipidemia, unspecified; G47.33 Obstructive sleep apnea (adult) (pediatric); D75.1 Secondary polycythemia